=== PATIENT | male | born 1975 | race Asian ===

== ENCOUNTER 2020-12-31 10:35 | Emergency (ER) | payer OTHER ==
[~2020-12-31] VITALS: Ht 160 cm; Wt 54.9 kg
[2020-12-31 10:35] VITALS: BP_SYST 124
== END 2020-12-31 11:26 ==
LOC: SED 10:35
DX: S10.93XA Contusion of unspecified part of neck, initial encounter (principal); S50.812A Abrasion of left forearm, initial encounter; V43.52XA Car driver injured in collision with other type car in traffic accident, initial encounter; Y93.89 Activity, other specified; Y92.89 Other specified places as the place of occurrence of the external cause; Y99.8 Other external cause status
CPT/HCPCS: 99283